=== PATIENT | female | born 1965 | race Asian ===

== ENCOUNTER 2020-10-01 11:22 | Emergency (ER) | payer OTHER ==
[~2020-10-01] VITALS: Ht 170.2 cm; Wt 100.0 kg
[2020-10-01 11:30] VITALS: BP 127/70
[2020-10-01] MEDS ORDERED: ACETAMINOPHEN 325 MG TABLET PO ONE (12:30)
== END 2020-10-01 13:08 | disposition home or self-care (01) ==
LOC: EMS 11:29
DX: U07.1 COVID-19 (principal); R05 Cough; R07.9 Chest pain, unspecified
CPT/HCPCS: 93005; 99284; U0003; Z7502; Z7610